=== PATIENT | female | born 1945 | race Asian ===

== ENCOUNTER 2020-01-30 15:54 | Emergency (ER) | payer MEDICARE, OTHER ==
[~2020-01-30] VITALS: Ht 162.6 cm; Wt 65.9 kg
[~2020-01-30 15:54] MED LIST: ASPI-728 PO; CILO50TA9 PO; ISON100I IM; LISI10TA PO; METF-444 PO; SIMV-43 PO
[2020-01-30] MEDS ORDERED: SIMV-259 PO (16:10)
[2020-01-30] MEDS ORDERED: METO25XL PO (16:10)
[2020-01-30 16:20] LABS: GLUCOSE,POINT OF CARE 97 MG/DL (70-110)
[2020-01-30 18:30] VITALS: BP 128/77
== END 2020-01-30 19:03 | disposition home or self-care (01) ==
LOC: EMS 15:55
DX: S92.422A Displaced fracture of distal phalanx of left great toe, initial encounter for closed fracture (principal); E11.9 Type 2 diabetes mellitus without complications; E78.00 Pure hypercholesterolemia, unspecified; I10 Essential (primary) hypertension; Z88.0 Allergy status to penicillin; Z79.82 Long term (current) use of aspirin; Z90.710 Acquired absence of both cervix and uterus; W20.8XXA Other cause of strike by thrown, projected or falling object, initial encounter; Y93.89 Activity, other specified; Y92.89 Other specified places as the place of occurrence of the external cause; Y99.8 Other external cause status